=== PATIENT | female | born 1980 | race African-American/Black ===

== ENCOUNTER 2018-06-06 05:27 | Day surgery (SDC) | payer MEDICARE, OTHER ==
[~2018-06-06] VITALS: Ht 175.3 cm; Wt 124.1 kg
[~2018-06-06 05:27] MED LIST: ALPR2TAB2 PO; BENA10TA11 PO; CLON0.1T PO; HYDR-3971 PO; OXYM20TA PO; VALS320T2 PO
[2018-06-06] MEDS ORDERED: SODIUM CHLORIDE 0.9% 1,000 ML IV ONE ×2 (05:36→06:15)
[2018-06-06 07:43] VITALS: BP 145/94
[2018-06-06] MEDS ORDERED: MIDAZOLAM HCL 2 MG/2 ML VIAL ONE ×3 (07:49→08:16)
[2018-06-06] MEDS ORDERED: TRIAMCINOLONE ACETONIDE 40 MG/ML VIAL ONE (07:49)
[2018-06-06] MEDS ORDERED: BUPIVACAINE HCL/PF 0.75% 10 ML VIAL ONE (07:49)
[2018-06-06] MEDS ORDERED: FentaNYL CITRATE-PF 100 MCG/2 ML VIAL ONE ×2 (07:49→08:04)
[2018-06-06] MEDS ORDERED: LIDOCAINE HCL/PF 1% 30 ML VIAL ONE (07:50)
[2018-06-06] MEDS ORDERED: IOHEXOL 300 MG/ML 10 ML VIAL ONE (07:50)
[2018-06-06] MEDS ORDERED: LIDOCAINE HCL/PF 2% 5 ML VIAL ONE (07:50)
[2018-06-06] MEDS ORDERED: FentaNYL CITRATE-PF 100 MCG/2 ML VIAL IVP ONE (07:53)
[2018-06-06] MEDS ORDERED: MIDAZOLAM HCL 5 MG/ML VIAL IVP ONE (07:53)
[2018-06-06] MEDS ORDERED: LIDOCAINE 1% 30 ML/SOD BICARB 8.4% 4 ML SQ ONE (07:55)
[2018-06-06] MEDS ORDERED: IOHEXOL 300 MG/ML 10 ML VIAL IARTIC ONE (08:07)
[2018-06-06] MEDS ORDERED: BUPIVACAINE HCL/PF 0.75% 10 ML VIAL IARTIC ONE (08:16)
[2018-06-06] MEDS ORDERED: TRIAMCINOLONE ACETONIDE 40 MG/ML VIAL IARTIC ONE (08:16)
[2018-06-06 08:21] VITALS: BP 158/101
[2018-06-06] MEDS ORDERED: HYDROmorphone 2 MG/ML SYRINGE IVP ONE (08:45)
[2018-06-06] MEDS ORDERED: HYDROmorphone 2 MG/ML SYRINGE ONE (08:50)
== END 2018-06-06 09:27 | disposition home or self-care (01) ==
LOC: SDS 05:27
PROVIDERS: ATTEND Specialist
DX: M54.16 Radiculopathy, lumbar region (principal); F17.210 Nicotine dependence, cigarettes, uncomplicated; I10 Essential (primary) hypertension; F41.8 Other specified anxiety disorders; G89.29 Other chronic pain; Z88.0 Allergy status to penicillin; Z79.891 Long term (current) use of opiate analgesic; Z90.711 Acquired absence of uterus with remaining cervical stump; Z79.899 Other long term (current) drug therapy; Z98.890 Other specified postprocedural states
CPT/HCPCS: 64483; 72275; 84703; 99152; 99153; J1170; J2250; J3010; J3301; J3490 ×2; J7030; Q9967

== ENCOUNTER 2019-01-15 09:54 | Emergency (ER) | payer MEDICARE, OTHER ==
[~2019-01-15] VITALS: Ht 175.3 cm; Wt 90.5 kg
[~2019-01-15 09:54] MED LIST changes: -BENA10TA11 PO; +BENA10TA12 PO
[2019-01-15] MEDS ORDERED: CARI350 PO (10:07)
[2019-01-15] MEDS ORDERED: HYDR2 PO (10:07)
[2019-01-15] MEDS ORDERED: SODIUM CHLORIDE 0.9% 1,000 ML IV ONE (10:28)
[2019-01-15] MEDS ORDERED: ONDANSETRON HCL 4 MG/2 ML VIAL IVP ONE (10:30)
[2019-01-15 10:49] LABS: BILIRUBIN,URINE NEGATIVE (NEGATIVE); GLUCOSE, URINE (UA) NEGATIVE (NEGATIVE); KETONES,URINE NEGATIVE (NEGATIVE); LEUKOCYTE ESTERASE ,URINE NEGATIVE (NEGATIVE); NITRATE,URINE NEGATIVE (NEGATIVE); OCCULT BLOOD,URINE NEGATIVE (NEGATIVE); PROTEIN,URINE NEGATIVE (NEGATIVE); UROBILINOGEN,URINE 0.2 mg/dL (<=1.0)
[2019-01-15 10:54] LABS: AMPHET/METH SCREEN,URINE NEGATIVE (NEGATIVE); BARBITURATE SCREEN, URINE NEGATIVE (NEGATIVE); BENZODIAZEPINES SCREEN,URINE NEGATIVE (NEGATIVE); CANNABINOID SCREEN,URINE NEGATIVE (NEGATIVE); COCAINE SCREEN,URINE NEGATIVE (NEGATIVE); METHADONE SCREEN, URINE NEGATIVE (NEGATIVE); OPIATE SCREEN,URINE POSITIVE (NEGATIVE); PHENCYCLIDINE SCREEN,URINE NEGATIVE (NEGATIVE)
[2019-01-15 10:55] LABS: APPEARANCE,URINE HAZY (CLEAR)
[2019-01-15 11:22] LABS: BASOPHILS % (AUTO) 0.8 % (0.0-2.0); EOSINOPHILS % (AUTO) 3.4 % (1.0-6.0); HEMATOCRIT 39.6 % (36-46); HEMOGLOBIN 12.9 g/dL (12.0-16.0); LYMPHOCYTES % (AUTO) 44.3 % (22.0-44.0); MEAN CORPUSCULAR HEMOGLOBIN 32.3 pg (26.0-34.0); MEAN CORPUSCULAR HGB CONC 32.7 G/dL (31.0-37.0); MEAN CORPUSCULAR VOLUME 99 fL (80-100); MONOCYTES # (AUTO) 0.5 K/uL (0.1-1.0); MONOCYTES % (AUTO) 7.9 % (2.0-9.0); NEUTROPHILS # (AUTO) 2.9 K/uL (1.8-7.7); NEUTROPHILS % (AUTO) 43.6 % (40.0-70.0); PLATELET COUNT (AUTO) 214 K/uL (150-450); RED CELL DISTRIBUTION WIDTH 13.7 % (11.5-14.5)
[2019-01-15 11:33] LABS: ANION GAP 4 mmol/L (8-16); CALCIUM, TOTAL 8.7 mg/dL (8.8-10.5); CARBON DIOXIDE 29 mmol/L (22-29); CHLORIDE 103 mmol/L (98-107); CREATININE 0.87 mg/dL (0.60-1.30); GLOMERULAR FILTR. RATE CALC > 60 mL/min (>60); GLUCOSE,RANDOM 85 mg/dL (70-110); POTASSIUM 3.3 mmol/L (3.5-5.1); SODIUM SERUM 136 mmol/L (136-145); UREA NITROGEN, BLOOD 9 mg/dL (7-18)
[2019-01-15 11:40] VITALS: BP 135/95
[2019-01-15 11:44] LABS: ALANINE AMINOTRANSFERASE 14 U/L (12-78); ALBUMIN 3.2 g/dL (3.4-5.0); ALKALINE PHOSPHATASE 61 U/L (46-116); ASPARTATE AMINOTRANSFERASE 13 U/L (15-37); BILIRUBIN,TOTAL 0.3 mg/dL (0.1-1.0); HCG,QUANTITATIVE < 1 mIU/mL (0-6); LIPASE 125 U/L (73-393); TOTAL PROTEIN, SERUM 6.6 g/dL (6.4-8.2)
[2019-01-15] MEDS ORDERED: POTASSIUM CHLORIDE 20 MEQ ER TABLET PO ONE (12:00)
[2019-01-15] MEDS ORDERED: KETOROLAC TROMETHAMINE 30 MG/ML VIAL IVP ONE (12:00)
== END 2019-01-15 12:08 | disposition home or self-care (01) ==
LOC: EMS 09:54
DX: G89.29 Other chronic pain (principal); M54.5 Low back pain; G89.18 Other acute postprocedural pain; R10.9 Unspecified abdominal pain; F17.210 Nicotine dependence, cigarettes, uncomplicated; I10 Essential (primary) hypertension; Z88.0 Allergy status to penicillin; Z79.899 Other long term (current) drug therapy
CPT/HCPCS: 36415; 80053; 80307; 81003; 83690; 84702; 85025; 96374; 96375; 99283; J1885; J2405; J7030

== ENCOUNTER 2019-07-02 12:30 | Emergency (ER) | payer MEDICARE, OTHER ==
[~2019-07-02] VITALS: Ht 175.3 cm; Wt 113.6 kg
[~2019-07-02 12:30] MED LIST changes: -ALPR2TAB2 PO; +CARI350 PO; -CLON0.1T PO; +HYDR2 PO; -OXYM20TA PO; -VALS320T2 PO
[2019-07-02 13:10] VITALS: BP 146/97
[2019-07-02] MEDS ORDERED: DiphenhydrAMINE HCL 25 MG CAPSULE PO ONE (13:45)
[2019-07-02] MEDS ORDERED: PredniSONE 20 MG TABLET PO ONE (13:45)
== END 2019-07-02 14:01 | disposition home or self-care (01) ==
LOC: EMS 12:33
DX: T63.481A Toxic effect of venom of other arthropod, accidental (unintentional), initial encounter (principal); S00.86XA Insect bite (nonvenomous) of other part of head, initial encounter; S20.96XA Insect bite (nonvenomous) of unspecified parts of thorax, initial encounter; S40.861A Insect bite (nonvenomous) of right upper arm, initial encounter; I10 Essential (primary) hypertension; F17.210 Nicotine dependence, cigarettes, uncomplicated; Z90.49 Acquired absence of other specified parts of digestive tract; Z88.0 Allergy status to penicillin; W57.XXXA Bitten or stung by nonvenomous insect and other nonvenomous arthropods, initial encounter; Y93.89 Activity, other specified; Y92.89 Other specified places as the place of occurrence of the external cause; Y99.8 Other external cause status
CPT/HCPCS: 99283; J7512